=== PATIENT | female | born 1965 | race Caucasian/White ===

== ENCOUNTER 2017-02-01 09:16 | Emergency (ER) | payer OTHER ==
--- NOTE | 2017-02-01 10:45 | DIAGNOSTIC IMAGING REPORT ---
PROCEDURE: XR KNEE 4 VIEWS - RIGHT INDICATION: PAIN IN JOINT TECHNIQUE: Four views. COMPARISON: None. FINDINGS: Osseous structures and joint spaces are normal. IMPRESSION: 1. Normal right knee.
--- NOTE | 2017-02-01 13:01 | ED CLINICAL REPORT ---
Clinical Report - Physicians/Mid Levels [facility] [address] [place] [address] 02/01/2017 9:18 Patient: JER CASTILLO Time Seen: 09:23; initial patient contact. Arrived- By private vehicle. Historian- patient. HISTORY OF PRESENT ILLNESS Chief Complaint: Injury to right knee. The injury happened yesterday. Occurred at home. The patient sustained a laceration. Injury secondary to other mechansim (Pt reports superficial laceration to her R knee last week, knee became red and swollen yesterday.). Patient is experiencing moderate pain. Patient denies injury to the head or neck. REVIEW OF SYSTEMS The patient sustained a laceration. She complains of pain on weight bearing. She has had swelling. No tingling, weakness, numbness, suspected foreign body or chills. No fever, nausea or vomiting. She sustained skin laceration. All systems otherwise negative, except as recorded above. PAST HISTORY ( Corneal Abrasion. Lifestyle / Substance Problems. Chest Pain. Cervical Radiculopathy. Neck Injury. Ovarian Cyst. Depression. 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 MRSA Infection. SURGERIES: Carpal Tunnel Surgery. Hysterectomy. Ovarian cyst.). SOCIAL HISTORY Current every day smoker (electronic cigarrette). Alcohol use. Patient is a recovering alcoholic. No drug use. ADDITIONAL NOTES The nursing notes have been reviewed. PHYSICAL EXAM Vital Signs: 02/01/2017 09:27 BP: 110/57. HR: 83. RR: 16. O2 saturation: 100%. Temp: 98.4 F. Pain level now: 8/10. Have been reviewed. Hypotensive. Heart rate normal. Respiratory rate normal. Temperature normal. Oxygen saturation normal. Appearance: Alert. Oriented X3. No acute distress. Head: Head atraumatic. Eyes: Eyes normal inspection. ENT: Pharynx normal. The mucous membranes are not dry. CVS: Normal heart rate and rhythm. Heart sounds normal. Respiratory: No respiratory distress. Breath sounds normal. Skin: Skin warm and dry. Extremities: Right knee: moderate erythema, tenderness and swelling and small abrasion. Limited ROM (diminished flexion and extension). Medium sized joint effusion present. Neurovascular intact distally. No ecchymosis, puncture wound or deformity. Extremities otherwise negative. Neuro, Vascular and Tendons: Vascular status intact. Sensation intact. Motor intact. Tendon function intact. Gait: Limping gait. Neuro: Oriented X 3. No motor deficit. LABS, X-RAYS, AND EKG Rt Knee X-ray: No fracture. Normal alignment. No bony lesion, air in the soft tissue or foreign body. Soft tissues normal. Joint spaces normal. Soft tissue swelling. Views: 2 view knee series. Technique: good. The X-rays were independently viewed by me and interpreted contemporaneously by me. Prior films were not available for comparison. Laboratory Tests: UA-Culture if indicated: (SHONDA: 02/01/2017 10:00) ( [facility] 02/01/2017 10:33) Final results Test Result Flag Units (Reference) URINE COLOR YELLOW URINE APPEARANCE CLEAR URINE GLUCOSE NEGATIVE (NEGATIVE) URINE BILIRUBIN NEGATIVE (NEGATIVE) URINE KETONE NEGATIVE (NEGATIVE) URINE SPECIFIC GRAVITY 1.010 (1.010-1.030) URINE PH 7.0 (5.0-8.0) URINE PROTEIN NEGATIVE (NEGATIVE) URINE UROBILINOGEN 0.2 EU/dL (0.2-1.0) URINE NITRITE NEGATIVE (NEGATIVE) URINE BLOOD NEGATIVE (NEGATIVE) URINE LEUK ESTERASE NEGATIVE (NEGATIVE) URINE RBC NONE SEEN rbc/hpf (0-1) URINE WBC 0-1 wbc/hpf (0-1) URINE EPITHELIAL CELLS RARE EPI/hpf (0-5) URINE BACTERIA NONE SEEN (NONE SEEN) URINE COMMENT CULT NOT INDICATED URINE CULTURES ARE SET-UP BASED ON THE FOLLOWING CRITERIA:POSITIVE NITRITEPOSITIVE LEUKOCYTE ESTERASEGREATER THAN 10 WHITE BLOOD CELLSMODERATE (2+) OR GREATER BACTERIA CBC w Diff: (SHONDA: 02/01/2017 09:50) ( [facility] 02/01/2017 10:16) Final results Test Result Flag Units (Reference) WHITE BLOOD COUNT 9.4 K/uL (4.5-11.5) RED BLOOD COUNT 4.08 M/uL (4.00-5.20) HEMOGLOBIN 13.0 gm/dL (12.0-16.0) HEMATOCRIT 38.3 % (36.0-46.0) MEAN CELL VOLUME 94 fL (80-100) MEAN CORPUSCULAR HGB 32 pg (26-34) MEAN CORPUSCULAR HGB CONC 34 g/dL (31-37) RED CELL DISTRIBUTION WIDTH 12.8 % (11.6-14.8) PLATELET COUNT 195 K/uL (150-400) NEUTROPHIL % 81.7 H % (50-75) LYMPH % 11.7 L % (25-40) MONO % 6.0 % (3-14) EOSINOPHIL % 0.4 % (0-4) BASOPHIL % 0.2 % (0-2) CMP: (SHONDA: 02/01/2017 09:50) ( MsgRcvd 02/01/2017 10:31) Final results Test Result Flag Units (Reference) GLUCOSE 90 mg/dL (70-110) BUN 14 mg/dL (7-18) CREATININE 0.6 mg/dL (0.6-1.3) Estimated GFR >60 mL/min Estimated GFR- >60 mL/min Note: Persistent reduction over 3 months in eGFR<60 mL/min/1.73 m2 defines CKD. Patients with eGFR values>=60 mL/min/1.73 m2 may also have CKD if evidence ofpersistent proteinuria. Additional information may be foundat www.kidney.org. SODIUM 138 mmol/L (136-145) POTASSIUM 4.3 mmol/L (3.5-5.1) CHLORIDE 100 mmol/L (98-107) CARBON DIOXIDE 28 mmol/L (21-32) CALCIUM 8.7 mg/dL (8.5-10.1) TOTAL PROTEIN 7.8 g/dL (6.4-8.2) ALBUMIN 4.4 g/dL (3.3-5.0) BILIRUBIN, TOTAL 1.0 mg/dL (0.0-1.0) ALKALINE PHOSPHATASE 67 U/L (46-116) AST (SGOT) 29 U/L (15-37) ALT (SGPT) 45 U/L (12-78) . PROGRESS AND PROCEDURES Arthrocentesis: Time: 10:28. Per protocol, time-out completed immediately before the procedure. Right knee. Discussed the procedure's benefits, risks and possible complications including infection, bleeding and allergic reaction. Explained alternatives to the procedure. Prep done with chlorhexidine. Sterile technique used. Landmarks identified and lateral and anterior approach taken .21g needle used. Unable to aspirate any fluid. Was in the joint space. Attempted multiple times with re-adjustment of the needle. No complications. Consult obtained from orthopedics. call returned 12:37 Dr. Carl. Discussed lab results and the fact that there was no joint fluid, highly unlikely that she has a septic joint. Recommended starting Tx for cellulitis and f/u w/ PCP. Disposition: Discharged home in good and improved condition. Condition: good. CLINICAL IMPRESSION Cellulitis of the right knee. INSTRUCTIONS Your Current Medications: CONTINUE TAKING THE FOLLOWING MEDICATIONS: Aleve Oral. OxyCODONE HCl Oral : 15mg 4x a day. Trazodone HCl Oral : 100 mg daily. Prescription Medications: Clindamycin 300 mg: take 1 capsule orally every 6 hours for 7 days. No refill. Follow-up: Follow up with your doctor in about two days. Call for an appointment. Screening today revealed the patient's blood pressure to be in the normal range. (Electronically signed by Raul Castillo Dr. 02/01/2017 13:06)
--- NOTE | 2017-02-01 13:01 | ED NURSING NOTES ---
Clinical Report - Nurses [facility] [address] [place] [address] 02/01/2017 9:18 [id number] TRI[facility] Triage time 09:27. Acuity: LEVEL 4. Chief Complaint: Location of symptoms- right knee. 09:28 02/01/17. 09:28 02/01/17. Alert. No acute distress. ( Right knee swelling and pain. This started last night. Denies injury.). SEPSIS SCREEN: Sepsis Screen. Negative (no infection suspected/documented). MICHELLE COMA SCORE: Michelle Coma Scale: 15- eyes open spontaneously (4); best verbal response- oriented x 4 (5); best motor response- obeys commands (6). --09:36 Julio César Domingo R.N. 09:27 02/01/17. BP: 110/57. HR: 83. RR: 16. O2 saturation: 100% on room air. Temp: 98.4 F (oral). Pain level now: 04/28. --09:36 Julio César Domingo R.N. Acuity: LEVEL 3. --13:30 Julio César Domingo R.N. Weight: 55.3 kg stated. Height/Length: 67 inches Per Patient. BMI: 19.1. --09:29 Julio César Domingo R.N. Medications OxyCODONE HCl Oral 15mg, 4x a day. --09:31 Julio César Domingo R.N. Trazodone HCl Oral 100 mg, daily. --09:31 Julio César Domingo R.N. Aleve Oral. --09:32 Julio César Domingo R.N. Medication/allergy information source: the patient. --09:36 Julio César Domingo R.N. Allergies Codeine.(vomiting) --09:32 Julio César Domingo R.N. History Arrived by private vehicle. Historian: patient. Unaccompanied. Primary physician (HAROLDOPCP, Pain Management MD-CULLEN (Pain management in [place])). 09:28 02/01/17. No injury occurred. This occurred yesterday. She has had trouble walking. Treatment INTELLIGENCE SPECIALIST: (oxycodone and aleve). PAST MEDICAL HX: Tetanus status: up-to-date. Immunizations: up-to-date. SOCIAL HX: Current some days light tobacco smoker- less than 1/2 a pack per day (Pt Vapes). Alcohol use. Patient is a recovering alcoholic. No drug use. No infectious disease exposure. FALL RISK ASSESSMENT: Fall risk assessment completed. No fall risk identified. NUTRITIONAL RISK ASSESSMENT: The nutritional risk assessment revealed no deficiencies. FUNCTIONAL ASSESSMENT: Functional assessment: no impairments noted. LEARNING NEEDS ASSESSMENT: The learning needs assessment revealed no barriers. SKIN INTEGRITY ASSESSMENT: Skin integrity risk assessment completed. No skin integrity risk identified. --09:36 Julio César Domingo R.N. ABUSE ASSESSMENT: No report of abuse. --09:36 Julio César Domingo R.N. PROBLEMS: Corneal Abrasion. Lifestyle / Substance Problems. Chest Pain. Cervical Radiculopathy. Neck Injury. Ovarian Cyst. Depression. 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 --09:32 Julio César Domingo R.N. MRSA Infection. --09:35 Julio César Domingo R.N. ADDITIONAL SURGERIES: Carpal Tunnel Surgery. Hysterectomy. Ovarian cyst. --09:32 Julio César Domingo R.N. Assessment 09:28 02/01/17. --09:36 Julio César Domingo R.N. Interventions 09:28 02/01/17. 09:02/01/17. ID and allergy band on patient. To treatment room. --09:36 Julio César Domingo R.N. PHYSICAL ASSESSMENT 09:33 02/01/17. To room via wheelchair. GENERAL / NEURO / PSYCH: Oriented X 4. Alert. Appears in no acute distress. EXTREMITIES: Extremity pulses are within normal limits. Neuro-vascular status intact to the extremity. Right knee: tenderness, swelling and erythema. SKIN: Skin is warm and dry. --09:33 Julio César Domingo R.N. NURSING PROGRESS NOTES 09:33 02/01/17. Extremity elevated. Neuro-vascular extremity check. Reassurance given. Call light placed in reach. Side rails up x 2. Bed placed in lowest position. Brakes of bed on. Patient placed in chair. Brakes of chair on. --09:33 Julio César Domingo R.N. 09:33 02/01/17. Patient ready for evaluation- chart flagged and notification provided. --09:33 Julio César Domingo R.N. 09:49 02/01/2017 Site #1 started via IV in the right forearm with an 20g angiocath, with aseptic technique and good blood return; one attempt. Blood drawn: rainbow set and cultures x1. Labeled in the presence of the patient. Saline lock flushed with 10 mL saline. --09:54 Julio César Domingo R.N. 10:02 02/01/17. Patient ID band checked for patient name and birthdate. Clean catch urine collected with return of roger-colored urine; sample sent to lab for urinalysis and culture. Specimen labeled in the presence of the patient. --10:02 Julio César Domingo R.N. 10:47 02/01/17. BP: 111/56. HR: 82. RR: 14. O2 saturation: 99% on room air. Temp: 98.2 F (oral). --10:48 Julio César Domingo R.N. 10:48 02/01/17. --10:48 Julio César Domingo R.N. 11:31 02/01/2017 Toradol IVP 30 mg given over 2 minute(s) via site #1. Allergies verified and confirmed 5 rights. IV patency established. IV site checked: no pain, redness, or swelling. IV flushed thoroughly pre- and post-medication administration. IVP given by RN. --11:36 Julio César Domingo R.N. 11:36 02/01/17. BP: 117/67. HR: 81. RR: 17. O2 saturation: 99% on room air. Temp: 98.1 F (oral). Pain level now: 04/28. --11:37 Julio César Domingo R.N. 11:37 02/01/17. --11:37 Julio César Domingo R.N. 12:54 02/01/2017 Started 600 mg of Clindamycin IVPB in bag #1 50 mL; at 100 mL/hr over 30 minute(s) via site #1; Allergies verified and confirmed 5 rights. IV patency established. IV site checked: no pain, redness, or swelling. IV flushed thoroughly pre- and post-medication administration. Completed per protocol. --13:09 Julio César Domingo R.N. 12:59 02/01/2017 Demerol (Meperidine HCl) IVP 25 mg given over 2 minute(s) via site #1. Allergies verified and confirmed 5 rights. IV patency established. IV site checked: no pain, redness, or swelling. IV flushed thoroughly pre- and post-medication administration. IVP given by RN. --13:09 Julio César Domingo R.N. 13:26 02/01/2017 Clindamycin IVPB Discontinued: bag #1 infused. Total amount infused: 100 mL. IV patency established. IV site checked: no pain, redness, or swelling. IV flushed thoroughly. --13:31 Julio César Domingo R.N. DISPOSITION / DISCHARGE 13:30 02/01/2017 Site #1 removed upon discharge. Catheter intact. Bandage applied. --13:30 Julio César Domingo R.N. 13:32 02/01/17. Condition at departure: improved. The goals identified in the patient's plan of care were met. No learning barriers present. Discharge instructions provided and reviewed with the patient. Reviewed warnings. Reviewed medication(s). Treatments reviewed. Patient verbalized understanding. Written instructions provided in Slovak. The patient was discharged by the physician. She was discharged home and accompanied by applications system analyst. She left the Emergency Department ambulatory and via private vehicle. Career Center Advisor driving. FALL RISK ASSESSMENT: Fall risk assessment completed. No fall risk identified. --13:32 Julio César Domingo R.N. 13:30 02/01/17. BP: 121/67. HR: 81. RR: 17. O2 saturation: 99% on room air. Temp: 97.9 F (oral). --13:32 Julio César Domingo R.N. 13:32 02/01/17. Departure time: 13:32. --13:32 Julio César Domingo R.N. Locked/Released at 02/01/2017 13:46 by Julio César Domingo R.N.
--- NOTE | 2017-02-01 13:01 | ED ORDER SUMMARY ---
..... Patient: JER LARSON OrderSheet [facility] VisitID: [id number] [place] [address] 51y, F Registration Date/Time: 02/01/2017 ORDER SHEET Weight: 55.3 kg (stated) Allergies: Codeine GENERAL ORDERS: CBC w Diff Urgent (09:41 02/01/2017 Gino Alexander) (Ack 9:47 Mic) (9:54 JBoardley R.N.) CMP Urgent (09:02/01/2017 Gino Alexander) (Ack 9:47 Mic) (9:54 JBoardley R.N.) UA-Culture if indicated Urgent (:02/01/2017 Gino Alexander) (Ack 9:47 Mic) (10:02 JBoardley R.N.) PCT (Procalcitonin) Urgent (09:02/01/2017 Gino Alexander) (Ack 9:47 Mic) (9:54 JBoardley R.N.) Blood Culture (No) (N/A) Urgent (09:47 02/01/2017 Mic verbal order read back to Gino Alexander) (Ack 9:49 Mic) (9:54 JBoardley R.N.) Knee 4V Right Urgent (09:59 02/01/2017 Gino Alexander) (Ack 10:04 Mic) (10:19 Mic) Lactic Acid for Sepsis Protocol Urgent (11:17 02/01/2017 Gino Alexander) (11:22 Mic) MEDICATION ORDERS: IV FLUIDS: IV Saline Lock (09:41 02/01/2017 Gino Alexander) (Ack 9:42 JBoarjoe R.N.) Toradol IV 30 mg (NOW) (11:28 02/01/2017 Gino Alexander) (Ack 11:32 JRomanelli R.N.) (11:36 JBoardley R.N.) Clindamycin IV 600 mg/50mL (NOW) (12:38 02/01/2017 Gino Alexander) (Ack 12:55 Trevor R.N.) (13:09 INEZoardley R.N.) Demerol IV 25 mg (HIGH ALERT MEDICATION, NOW) (12:39 02/01/2017 Gino Alexander) (Ack 12:55 JBoardley R.N.) (13:09 JBoardley R.N.) ORDER SHEET NOTES: [Electronically signed by Raul Larson Dr. (13:06 02/01/2017)] [Electronically signed by Julio César Domingo R.N. (13:46 02/01/2017)] [Electronically locked/signed by Julio César Domingo R.N. (13:46 02/01/2017)]
--- NOTE | 2017-02-01 13:01 | ED NURSING NOTES ---
Clinical Report - Nurses [facility] [place] [address] 02/01/2017 9:18 [id number] Triage time 09:27. Acuity: LEVEL 4. Chief Complaint: Location of symptoms- right knee. 09:28 02/01/17. 09:28 02/01/17. Alert. No acute distress. ( Right knee swelling and pain. This started last night. Denies injury.). SEPSIS SCREEN: Sepsis Screen. Negative (no infection suspected/documented). MICHELLE COMA SCORE: Michelle Coma Scale: 15- eyes open spontaneously (4); best verbal response- oriented x 4 (5); best motor response- obeys commands (6). --09:36 Julio César Domingo R.N. 09:27 02/01/17. BP: 110/57. HR: 83. RR: 16. O2 saturation: 100% on room air. Temp: 98.4 F (oral). Pain level now: 04/28. --09:36 Julio César Domingo R.N. Acuity: LEVEL 3. --13:30 Julio César Domingo R.N. Weight: 55.3 kg stated. Height/Length: 67 inches Per Patient. BMI: 19.1. --09:29 Julio César Domingo R.N. Medications OxyCODONE HCl Oral 15mg, 4x a day. --09:31 Julio César Domingo R.N. Trazodone HCl Oral 100 mg, daily. --09:31 Julio César Domingo R.N. Aleve Oral. --09:32 Julio César Domingo R.N. Medication/allergy information source: the patient. --09:36 Julio César Domingo R.N. Allergies Codeine.(vomiting) --09:32 Julio César Domingo R.N. History Arrived by private vehicle. Historian: patient. Unaccompanied. Primary physician (HAROLDOPCP, Pain Management MD-CULLEN (Pain management in [place])). 09:28 02/01/17. No injury occurred. This occurred yesterday. She has had trouble walking. Treatment HEALTHCARE OR MEDICAL: (oxycodone and aleve). PAST MEDICAL HX: Tetanus status: up-to-date. Immunizations: up-to-date. SOCIAL HX: Current some days light tobacco smoker- less than 1/2 a pack per day (Pt Vapes). Alcohol use. Patient is a recovering alcoholic. No drug use. No infectious disease exposure. FALL RISK ASSESSMENT: Fall risk assessment completed. No fall risk identified. NUTRITIONAL RISK ASSESSMENT: The nutritional risk assessment revealed no deficiencies. FUNCTIONAL ASSESSMENT: Functional assessment: no impairments noted. LEARNING NEEDS ASSESSMENT: The learning needs assessment revealed no barriers. SKIN INTEGRITY ASSESSMENT: Skin integrity risk assessment completed. No skin integrity risk identified. --09:36 Julio César Domingo R.N. ABUSE ASSESSMENT: No report of abuse. --09:36 Julio César Domingo R.N. PROBLEMS: Corneal Abrasion. Lifestyle / Substance Problems. Chest Pain. Cervical Radiculopathy. Neck Injury. Ovarian Cyst. Depression. 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 --09:32 Julio César Domingo R.N. MRSA Infection. --09:35 Julio César Domingo R.N. ADDITIONAL SURGERIES: Carpal Tunnel Surgery. Hysterectomy. Ovarian cyst. --09:32 Julio César Domingo R.N. Assessment 09:28 02/01/17. --09:36 Julio César Domingo R.N. Interventions 09:28 02/01/17. 09:02/01/17. ID and allergy band on patient. To treatment room. --09:36 Julio César Domingo R.N. PHYSICAL ASSESSMENT 09:33 02/01/17. To room via wheelchair. GENERAL / NEURO / PSYCH: Oriented X 4. Alert. Appears in no acute distress. EXTREMITIES: Extremity pulses are within normal limits. Neuro-vascular status intact to the extremity. Right knee: tenderness, swelling and erythema. SKIN: Skin is warm and dry. --09:33 Julio César Domingo R.N. NURSING PROGRESS NOTES 09:33 02/01/17. Extremity elevated. Neuro-vascular extremity check. Reassurance given. Call light placed in reach. Side rails up x 2. Bed placed in lowest position. Brakes of bed on. Patient placed in chair. Brakes of chair on. --09:33 Julio César Domingo R.N. 09:33 02/01/17. Patient ready for evaluation- chart flagged and notification provided. --09:33 Julio César Domingo R.N. 09:49 02/01/2017 Site #1 started via IV in the right forearm with an 20g angiocath, with aseptic technique and good blood return; one attempt. Blood drawn: rainbow set and cultures x1. Labeled in the presence of the patient. Saline lock flushed with 10 mL saline. --09:54 Julio César Domingo R.N. 10:02 02/01/17. Patient ID band checked for patient name and birthdate. Clean catch urine collected with return of roger-colored urine; sample sent to lab for urinalysis and culture. Specimen labeled in the presence of the patient. --10:02 Julio César Domingo R.N. 10:47 02/01/17. BP: 111/56. HR: 82. RR: 14. O2 saturation: 99% on room air. Temp: 98.2 F (oral). --10:48 Julio César Domingo R.N. 10:48 02/01/17. --10:48 Julio César Domingo R.N. 11:31 02/01/2017 Toradol IVP 30 mg given over 2 minute(s) via site #1. Allergies verified and confirmed 5 rights. IV patency established. IV site checked: no pain, redness, or swelling. IV flushed thoroughly pre- and post-medication administration. IVP given by RN. --11:36 Julio César Domingo R.N. 11:36 02/01/17. BP: 117/67. HR: 81. RR: 17. O2 saturation: 99% on room air. Temp: 98.1 F (oral). Pain level now: 04/28. --11:37 Julio César Domingo R.N. 11:37 02/01/17. --11:37 Julio César Domingo R.N. 12:54 02/01/2017 Started 600 mg of Clindamycin IVPB in bag #1 50 mL; at 100 mL/hr over 30 minute(s) via site #1; Allergies verified and confirmed 5 rights. IV patency established. IV site checked: no pain, redness, or swelling. IV flushed thoroughly pre- and post-medication administration. Completed per protocol. --13:09 Julio César Domingo R.N. 12:59 02/01/2017 Demerol (Meperidine HCl) IVP 25 mg given over 2 minute(s) via site #1. Allergies verified and confirmed 5 rights. IV patency established. IV site checked: no pain, redness, or swelling. IV flushed thoroughly pre- and post-medication administration. IVP given by RN. --13:09 Julio César Domingo R.N. 13:26 02/01/2017 Clindamycin IVPB Discontinued: bag #1 infused. Total amount infused: 100 mL. IV patency established. IV site checked: no pain, redness, or swelling. IV flushed thoroughly. --13:31 Julio César Domingo R.N. DISPOSITION / DISCHARGE 13:30 02/01/2017 Site #1 removed upon discharge. Catheter intact. Bandage applied. --13:30 Julio César Domingo R.N. 13:32 02/01/17. Condition at departure: improved. The goals identified in the patient's plan of care were met. No learning barriers present. Discharge instructions provided and reviewed with the patient. Reviewed warnings. Reviewed medication(s). Treatments reviewed. Patient verbalized understanding. Written instructions provided in Chinese. The patient was discharged by the physician. She was discharged home and accompanied by public works manager. She left the Emergency Department ambulatory and via private vehicle. Vest Finisher driving. FALL RISK ASSESSMENT: Fall risk assessment completed. No fall risk identified. --13:32 Julio César Domingo R.N. 13:30 02/01/17. BP: 121/67. HR: 81. RR: 17. O2 saturation: 99% on room air. Temp: 97.9 F (oral). --13:32 Julio César Domingo R.N. 13:32 02/01/17. Departure time: 13:32. --13:32 Julio César Domingo R.N. Locked/Released at 02/01/2017 13:46 by Julio César Domingo R.N.
--- NOTE | 2017-02-01 13:01 | ED ORDER SUMMARY ---
..... Patient: JER LARSON OrderSheet [facility] VisitID: [id number] [place] [address] 51y, F Registration Date/Time: 02/01/2017 ORDER SHEET Weight: 55.3 kg (stated) Allergies: Codeine GENERAL ORDERS: CBC w Diff Urgent (09:41 02/01/2017 Gino Alexander) (Ack 9:47 Mic) (9:54 JBoardley R.N.) CMP Urgent (09:02/01/2017 Gino Alexander) (Ack 9:47 Mic) (9:54 JBoardley R.N.) UA-Culture if indicated Urgent (:02/01/2017 Gino Alexander) (Ack 9:47 Mic) (10:02 JBoardley R.N.) PCT (Procalcitonin) Urgent (09:02/01/2017 Gino Aleaxnder) (Ack 9:47 Mic) (9:54 JBoardley R.N.) Blood Culture (No) (N/A) Urgent (09:47 02/01/2017 Mic verbal order read back to Gino Alexander) (Ack 9:49 Mic) (9:54 JBoardley R.N.) Knee 4V Right Urgent (09:59 02/01/2017 Gino Alexander) (Ack 10:04 Mic) (10:19 Mic) Lactic Acid for Sepsis Protocol Urgent (11:17 02/01/2017 Gino Alexander) (11:22 Mic) MEDICATION ORDERS: IV FLUIDS: IV Saline Lock (09:41 02/01/2017 Gino Alexander) (Ack 9:42 JBoarjoe R.N.) Toradol IV 30 mg (NOW) (11:28 02/01/2017 Gino Alexander) (Ack 11:32 JRomanelli R.N.) (11:36 JBoardley R.N.) Clindamycin IV 600 mg/50mL (NOW) (12:38 02/01/2017 Gino Alexander) (Ack 12:55 Trevor R.N.) (13:09 INEZoardley R.N.) Demerol IV 25 mg (HIGH ALERT MEDICATION, NOW) (12:39 02/01/2017 Gino Alexander) (Ack 12:55 JBoardley R.N.) (13:09 JBoardley R.N.) ORDER SHEET NOTES: [Electronically signed by Raul Larson Dr. (13:06 02/01/2017)] [Electronically signed by Julio César Domingo R.N. (13:46 02/01/2017)] [Electronically locked/signed by Julio César Domingo R.N. (13:46 02/01/2017)]
--- NOTE | 2017-02-01 13:47 | ED MAR SUMMARY ---
..... Medication Administration Record [facility] [address] [place] [address] Patient: JER LARSON Visit ID: [id number] 51y, F Weight: 55.3 kg Height/Length: 67 in BMI: 19.1 ALLERGIES: Codeine Given 11:31 02/01/2017 Julio César Domingo R.N. Medication Administered: TORADOL [IVP], Dose: 30 mg IVP over 2 minute(s), Site: #1 right forearm. Medication Ordered: Toradol IV 30 mg (NOW). Start 12:54 02/01/2017 Julio César Domingo R.N., Stop 13:26 02/01/2017 Julio César Domingo R.N. Medication Administered: CLINDAMYCIN [IVPB], Dose: 600 mg IVPB over 30 minute(s), Rate: 100 mL/hr, Dispensed: 50 mL bag, Site: #1 right forearm. Medication Ordered: Clindamycin IV 600 mg/50mL (NOW). Given 12:59 02/01/2017 Julio César Domingo R.N. Medication Administered: DEMEROL [IVP] (MEPERIDINE HCL), Dose: 25 mg IVP over 2 minute(s), Site: #1 right forearm. Medication Ordered: Demerol IV 25 mg (HIGH ALERT MEDICATION, NOW).
--- NOTE | 2017-02-01 13:47 | ED MED RECONCILIATION SUMMARY ---
Patient: CASTILLOJER Medication Reconciliation Report [facility] VisitID: [id number] [address] [place] [place] [address] 51y, F Registration Date/Time: 02/01/2017 Weight: 55.3 kg Height/Length: 67 in. BMI: 19.1 ALLERGIES: Codeine The patient's Home Medications are listed below: CONTINUE TAKING THE FOLLOWING MEDICATIONS: Aleve Oral OxyCODONE HCl Oral 15mg, 4x a day Trazodone HCl Oral 100 mg, daily The source(s) of the original Home Medication information: patient The following Medications were given to the patient in the Emergency Department: Toradol [IVP] IVP 30 mg, administered: 02/01/2017 11:31:00 AM Clindamycin [IVPB] IVPB bolus 0, then 600 mg 100 mL/hr, administered: 02/01/2017 12:54:00 PM Demerol [IVP] IVP 25 mg, administered: 02/01/2017 12:59:00 PM The following Medications were prescribed to the patient: Clindamycin 300 mg: take 1 capsule orally every 6 hours for 7 days. No refill. -- Raul Castillo Dr.
--- NOTE | 2017-02-01 13:47 | ED DISCHARGE INSTRUCTIONS ---
Patient: JER CASTILLO General Instructions [facility] VisitID: [id number] [place] [address] 51y, F Registration Date/Time: 02/01/2017 Cellulitis of the right knee. INSTRUCTIONS Your Current Medications: CONTINUE TAKING THE FOLLOWING MEDICATIONS: Aleve Oral. OxyCODONE HCl Oral : 15mg 4x a day. Trazodone HCl Oral : 100 mg daily. Prescription Medications: Clindamycin 300 mg: take 1 capsule orally every 6 hours for 7 days. No refill. Follow-up: Follow up with your doctor in about two days. Call for an appointment. Screening today revealed the patient's blood pressure to be in the normal range. ADDITIONAL INFORMATION Cellulitis You have an infection of the skin known as cellulitis. This usually starts with a scrape, cut, insect bite, blister or other opening in the skin which becomes infected. This is a serious condition. It must be watched closely to be sure the infection is not spreading. With antibiotic treatment, the size of the red area will gradually shrink in size until the skin returns to normal. This will take 7-10 days. The red area should never increase in size once the antibiotic medicine has been started. Occasionally, an infection will be resistant to one antibiotic and another one will have to be used. Home Care: 1) Limit the use of the affected part, since excess movement can cause the infection to spread. 2) If the infection is on your leg, walk as little as possible during the first few days of the treatment. Keep your leg elevated while sitting. This will reduce swelling. 3) Take all of the antibiotic medicine exactly as directed until it is gone. Be careful not to miss any doses, especially during the first seven days. Follow Up with your doctor or this facility as directed. Check the infected area daily for the warning signs listed below. Get Prompt Medical Attention if any of the following occur: -- Spreading area of redness -- Increasing swelling or pain -- Appearance of pus or drainage -- Fever over 100.4 F (38.0 C) oral, or over 101.4 F (38.6 C) rectal, after two days on antibiotics Clindamycin Hydrochloride Oral capsule What is this medicine? CLINDAMYCIN (KLIN da MYE sin) is a lincosamide antibiotic. It is used to treat certain kinds of bacterial infections. It will not work for colds, flu, or other viral infections. How should I use this medicine? Take this medicine by mouth with a full glass of water. Follow the directions on the prescription label. You can take this medicine with food or on an empty stomach. If the medicine upsets your stomach, take it with food. Take your medicine at regular intervals. Do not take your medicine more often than directed. Take all of your medicine as directed even if you think your are better. Do not skip doses or stop your medicine early. Talk to your knifer up regarding the use of this medicine in children. Special care may be needed. What side effects may I notice from receiving this medicine? Side effects that you should report to your doctor or health livestock caretaker as soon as possible: allergic reactions like skin rash, itching or hives, swelling of the face, lips, or tongue dark urine pain on swallowing redness, blistering, peeling or loosening of the skin, including inside the mouth unusual bleeding or bruising unusually weak or tired yellowing of eyes or skin Side effects that usually do not require medical attention (report to your doctor or health livestock caretaker if they continue or are bothersome): diarrhea itching in the rectal or genital area joint pain nausea, vomiting stomach pain What may interact with this medicine? chloramphenicol erythromycin kaolin products What if I miss a dose? If you miss a dose, take it as soon as you can. If it is almost time for your next dose, take only that dose. Do not take double or extra doses. Where should I keep my medicine? Keep out of the reach of children. Store at room temperature between 20 and 25 degrees C (68 and 77 degrees F). Throw away any unused medicine after the expiration date. What should I tell my health care provider before I take this medicine? They need to know if you have any of these conditions: kidney disease liver disease stomach problems like colitis an unusual or allergic reaction to clindamycin, lincomycin, or other medicines, foods, dyes like tartrazine or preservatives or trying to get breast-feeding What should I watch for while using this medicine? Tell your doctor or healthcare professional if your symptoms do not start to get better or if they get worse. Do not treat diarrhea with over the counter products. Contact your doctor if you have diarrhea that lasts more than 2 days or if it is severe and watery. You have been given the following additional information: Cellulitis Clindamycin Hydrochloride Oral capsule (Electronically signed by Raul Castillo Dr. 02/01/2017 13:06)
--- NOTE | 2017-02-01 13:47 | ED MAR SUMMARY ---
..... Medication Administration Record [facility] [address] [place] [address] Patient: JER LARSON Visit ID: [id number] 51y, F Weight: 55.3 kg Height/Length: 67 in BMI: 19.1 ALLERGIES: Codeine Given 11:31 02/01/2017 Julio César Domingo R.N. Medication Administered: TORADOL [IVP], Dose: 30 mg IVP over 2 minute(s), Site: #1 right forearm. Medication Ordered: Toradol IV 30 mg (NOW). Start 12:54 02/01/2017 Julio César Domingo R.N., Stop 13:26 02/01/2017 Julio César Domingo R.N. Medication Administered: CLINDAMYCIN [IVPB], Dose: 600 mg IVPB over 30 minute(s), Rate: 100 mL/hr, Dispensed: 50 mL bag, Site: #1 right forearm. Medication Ordered: Clindamycin IV 600 mg/50mL (NOW). Given 12:59 02/01/2017 Julio César Domingo R.N. Medication Administered: DEMEROL [IVP] (MEPERIDINE HCL), Dose: 25 mg IVP over 2 minute(s), Site: #1 right forearm. Medication Ordered: Demerol IV 25 mg (HIGH ALERT MEDICATION, NOW).
--- NOTE | 2017-02-01 13:47 | ED DISCHARGE INSTRUCTIONS ---
Patient: JER CASTILLO General Instructions [facility] VisitID: [id number] [place] [address] 51y, F Registration Date/Time: 02/01/2017 Cellulitis of the right knee. INSTRUCTIONS Your Current Medications: CONTINUE TAKING THE FOLLOWING MEDICATIONS: Aleve Oral. OxyCODONE HCl Oral : 15mg 4x a day. Trazodone HCl Oral : 100 mg daily. Prescription Medications: Clindamycin 300 mg: take 1 capsule orally every 6 hours for 7 days. No refill. Follow-up: Follow up with your doctor in about two days. Call for an appointment. Screening today revealed the patient's blood pressure to be in the normal range. ADDITIONAL INFORMATION Cellulitis You have an infection of the skin known as cellulitis. This usually starts with a scrape, cut, insect bite, blister or other opening in the skin which becomes infected. This is a serious condition. It must be watched closely to be sure the infection is not spreading. With antibiotic treatment, the size of the red area will gradually shrink in size until the skin returns to normal. This will take 7-10 days. The red area should never increase in size once the antibiotic medicine has been started. Occasionally, an infection will be resistant to one antibiotic and another one will have to be used. Home Care: 1) Limit the use of the affected part, since excess movement can cause the infection to spread. 2) If the infection is on your leg, walk as little as possible during the first few days of the treatment. Keep your leg elevated while sitting. This will reduce swelling. 3) Take all of the antibiotic medicine exactly as directed until it is gone. Be careful not to miss any doses, especially during the first seven days. Follow Up with your doctor or this facility as directed. Check the infected area daily for the warning signs listed below. Get Prompt Medical Attention if any of the following occur: -- Spreading area of redness -- Increasing swelling or pain -- Appearance of pus or drainage -- Fever over 100.4 F (38.0 C) oral, or over 101.4 F (38.6 C) rectal, after two days on antibiotics Clindamycin Hydrochloride Oral capsule What is this medicine? CLINDAMYCIN (KLIN da MYE sin) is a lincosamide antibiotic. It is used to treat certain kinds of bacterial infections. It will not work for colds, flu, or other viral infections. How should I use this medicine? Take this medicine by mouth with a full glass of water. Follow the directions on the prescription label. You can take this medicine with food or on an empty stomach. If the medicine upsets your stomach, take it with food. Take your medicine at regular intervals. Do not take your medicine more often than directed. Take all of your medicine as directed even if you think your are better. Do not skip doses or stop your medicine early. Talk to your housekeeping/laundry regarding the use of this medicine in children. Special care may be needed. What side effects may I notice from receiving this medicine? Side effects that you should report to your doctor or health career information specialist as soon as possible: allergic reactions like skin rash, itching or hives, swelling of the face, lips, or tongue dark urine pain on swallowing redness, blistering, peeling or loosening of the skin, including inside the mouth unusual bleeding or bruising unusually weak or tired yellowing of eyes or skin Side effects that usually do not require medical attention (report to your doctor or health career information specialist if they continue or are bothersome): diarrhea itching in the rectal or genital area joint pain nausea, vomiting stomach pain What may interact with this medicine? chloramphenicol erythromycin kaolin products What if I miss a dose? If you miss a dose, take it as soon as you can. If it is almost time for your next dose, take only that dose. Do not take double or extra doses. Where should I keep my medicine? Keep out of the reach of children. Store at room temperature between 20 and 25 degrees C (68 and 77 degrees F). Throw away any unused medicine after the expiration date. What should I tell my health care provider before I take this medicine? They need to know if you have any of these conditions: kidney disease liver disease stomach problems like colitis an unusual or allergic reaction to clindamycin, lincomycin, or other medicines, foods, dyes like tartrazine or preservatives or trying to get breast-feeding What should I watch for while using this medicine? Tell your doctor or healthcare professional if your symptoms do not start to get better or if they get worse. Do not treat diarrhea with over the counter products. Contact your doctor if you have diarrhea that lasts more than 2 days or if it is severe and watery. You have been given the following additional information: Cellulitis Clindamycin Hydrochloride Oral capsule (Electronically signed by Raul Castillo Dr. 02/01/2017 13:06)
--- NOTE | 2017-02-01 13:47 | ED MED RECONCILIATION SUMMARY ---
Patient: CASTILLOJER Medication Reconciliation Report [facility] VisitID: [id number] [address] [place] [address] 51y, F Registration Date/Time: 02/01/2017 Weight: 55.3 kg Height/Length: 67 in. BMI: 19.1 ALLERGIES: Codeine The patient's Home Medications are listed below: CONTINUE TAKING THE FOLLOWING MEDICATIONS: Aleve Oral OxyCODONE HCl Oral 15mg, 4x a day Trazodone HCl Oral 100 mg, daily The source(s) of the original Home Medication information: patient The following Medications were given to the patient in the Emergency Department: Toradol [IVP] IVP 30 mg, administered: 02/01/2017 11:31:00 AM Clindamycin [IVPB] IVPB bolus 0, then 600 mg 100 mL/hr, administered: 02/01/2017 12:54:00 PM Demerol [IVP] IVP 25 mg, administered: 02/01/2017 12:59:00 PM The following Medications were prescribed to the patient: Clindamycin 300 mg: take 1 capsule orally every 6 hours for 7 days. No refill. -- Raul Castillo Dr.
== END 2017-02-01 13:32 | disposition home or self-care (01) ==
LOC: ED SRH 09:16
DX: L03.115 Cellulitis of right lower limb (principal); X58.XXXA Exposure to other specified factors, initial encounter; Y93.9 Activity, unspecified; Y99.9 Unspecified external cause status; Y92.009 Unspecified place in unspecified non-institutional (private) residence as the place of occurrence of the external cause; F17.200 Nicotine dependence, unspecified, uncomplicated